=== PATIENT | female | born 1955 | race African-American/Black ===

== ENCOUNTER 2018-01-30 23:11 | Inpatient (IN) | payer OTHER ==
[~2018-01-30] VITALS: Ht 160 cm; Wt 79.4 kg
[2018-01-30] MEDS ORDERED: SODIUM CHLORIDE 0.9% 1,000 ML IV ONE (23:51)
[2018-01-31] VITALS: BP 152/69
[2018-01-31 00:28] LABS: HEMATOCRIT. 33.8 % (36.0-48.0); HEMOGLOBIN. 11.4 g/dL (12.0-16.0); MEAN CORPUSCULAR HEMOGLOBIN 30.8 pg (28.0-32.0); MEAN CORPUSCULAR VOLUME 91.8 fL (81.0-99.0); MEAN PLATELET VOLUME 8.5 fl (7.4-10.4); PLATELET 155 x1000/uL (130-400); RED BLOOD CELL COUNT 3.69 mill/uL (4.2-5.4); RED CELL DISTRIBUTION WIDTH 17.2 % (11.6-14.6)
[2018-01-31 00:34] LABS: CHLORIDE 97 mEq/L (98-107); INR 1.1
[2018-01-31 00:38] LABS: ETHANOL BLOOD < 10 mg/dL
[2018-01-31 00:40] LABS: AMMONIA < 10 uMol/L (<32)
[2018-01-31 01:15] LABS: CLARITY URINE CLEAR (CLEAR); COLOR URINE YELLOW (YELLOW); KETONES URINE TRACE (NEGATIVE); LEUKOCYTE ESTERASE URINE TRACE (NEGATIVE); NITRITE URINE NEGATIVE (NEGATIVE); OCCULT BLOOD URINE 1+ (NEGATIVE); PROTEIN URINE 4+ (NEGATIVE); SPECIFIC GRAVITY URINE 1.016 (1.005-1.030); UROBILINOGEN URINE 0.2 E.U./dL (0.2-1.0)
[2018-01-31 01:29] LABS: *AMPHETAMINES SCREEN URINE NEGATIVE (NEGATIVE); *BARBITURATES SCREEN URINE NEGATIVE (NEGATIVE); *BENZODIAZEPINES SCREEN URINE NEGATIVE (NEGATIVE); *COCAINE SCREEN URINE NEGATIVE (NEGATIVE); METHADONE URINE SCREEN NEGATIVE (NEGATIVE)
[2018-01-31 01:30] LABS: CANNABINOID URINE SCREEN NEGATIVE (NEGATIVE); OPIATES URINE SCREEN PRESUMTIVE POSITIVE (NEGATIVE); PHENCYCLIDINE URINE SCREEN NEGATIVE (NEGATIVE)
[2018-01-31 01:53] LABS: PLATELET ESTIMATE NORMAL
[2018-01-31] MEDS ORDERED: CLONIDINE 0.2MG TABLET PO ONE (07:30)
[2018-01-31] MEDS ORDERED: LABETALOL 5MG/ML SYR 20 MG/4 ML SYRINGE IV ONE (07:30)
[2018-01-31 10:30] VITALS: BP 90/50
[2018-01-31 12:00] VITALS: BP 90/50
[2018-01-31 12:49] VITALS: BP 90/50
[2018-01-31] MEDS ORDERED: CEPH500C2 MT (13:10)
[2018-01-31] MEDS ORDERED: TRAM50TA3 MT (13:10)
[2018-01-31] MEDS ORDERED: PRAV40TA MT (13:10)
[2018-01-31] MEDS ORDERED: SEVE800T8 MT (13:10)
[2018-01-31] MEDS ORDERED: FURO20TA4 MT (13:10)
[2018-01-31] MEDS ORDERED: MELA3TAB MT (13:10)
[2018-01-31] MEDS ORDERED: METO25TA6 MT (13:10)
[2018-01-31] MEDS ORDERED: LOSA25TA12 MT (13:10)
[2018-01-31] MEDS ORDERED: OMEP20CA10 MT (13:11)
[2018-01-31] MEDS ORDERED: DEXTROSE 50% WATER 50ML SYRINGE IV PRN (14:00)
[2018-01-31] MEDS ORDERED: ONDANSETRON HCL 4MG/2ML VIAL IV PRN (14:00)
[2018-01-31] MEDS ORDERED: HYDROCODONE/ACETAMINOPHEN 5/325MG TABLET PO PRN (14:00)
[2018-01-31] MEDS: LOSARTAN POTASSIUM 25 MG TABLET PO SCH (14:00)
[2018-01-31] MEDS ORDERED: ACETAMINOPHEN 325MG TABLET PO PRN (14:00)
[2018-01-31 15:53] VITALS: BP 105/58
[2018-01-31] MEDS: SEVELAMER CARBONATE 800 MG TABLET PO SCH (17:23)
[2018-01-31] MEDS: BLOOD SUGAR DIAGNOSTIC STRIP TEST SCH ×2 (17:23→21:00)
[2018-01-31] MEDS: INSULIN LISPRO 100 UNITS/ML SUBCUT SCH ×2 (17:28→21:00)
[2018-01-31 20:00] VITALS: BP 99/48
[2018-01-31] MEDS ORDERED: ATORVASTATIN CALCIUM 10MG TABLET PO SCH (21:00)
[2018-01-31] MEDS ORDERED: PRAVASTATIN SODIUM MT SCH (21:00)
[2018-01-31] MEDS: METOPROLOL TARTRATE 25MG TABLET PO SCH (21:00)
[2018-02-01 04:00] VITALS: BP 128/60
[2018-02-01 06:12] LABS: HEMATOCRIT. 30.8 % (36.0-48.0); HEMOGLOBIN. 9.9 g/dL (12.0-16.0); MEAN CORPUSCULAR HEMOGLOBIN 29.6 pg (28.0-32.0); MEAN CORPUSCULAR VOLUME 91.8 fL (81.0-99.0); MEAN PLATELET VOLUME 9.2 fl (7.4-10.4); PLATELET 145 x1000/uL (130-400); RED BLOOD CELL COUNT 3.35 mill/uL (4.2-5.4); RED CELL DISTRIBUTION WIDTH 17.4 % (11.6-14.6)
[2018-02-01] MEDS: BLOOD SUGAR DIAGNOSTIC STRIP TEST SCH ×2 (06:22→12:20)
[2018-02-01] MEDS ORDERED: OMEPRAZOLE 20MG CAPSULE EXTENDED RELEASE PO SCH (07:20)
[2018-02-01] MEDS: SEVELAMER CARBONATE 800 MG TABLET PO SCH ×2 (07:50→13:10)
[2018-02-01] MEDS: INSULIN LISPRO 100 UNITS/ML SUBCUT SCH ×2 (07:50→13:09)
[2018-02-01] MEDS: METOPROLOL TARTRATE 25MG TABLET PO SCH (09:00)
[2018-02-01] MEDS: LOSARTAN POTASSIUM 25 MG TABLET PO SCH (09:00)
[2018-02-01] MEDS ORDERED: FUROSEMIDE 20MG TABLET PO SCH (09:00)
[2018-02-01 17:12] VITALS: BP 129/71
[2018-02-01 22:55] LABS: PLATELET ESTIMATE NORMAL
== END 2018-02-01 18:05 | disposition short-term general hospital (02) | DRG 917 ==
LOC: ER 23:11 → EDBEDREQ 01-31 08:16 → ENRESERV 01-31 09:50 → 6WST 01-31 10:31
PROVIDERS: ADMIT Family Medicine Adult Medicine; ATTEND Family Medicine Adult Medicine
DX: T40.2X2A Poisoning by other opioids, intentional self-harm, initial encounter (principal); N18.6 End stage renal disease; G92 Toxic encephalopathy; I12.0 Hypertensive chronic kidney disease with stage 5 chronic kidney disease or end stage renal disease; E11.22 Type 2 diabetes mellitus with diabetic chronic kidney disease; D64.9 Anemia, unspecified; T45.0X2A Poisoning by antiallergic and antiemetic drugs, intentional self-harm, initial encounter; Y92.89 Other specified places as the place of occurrence of the external cause; Z99.2 Dependence on renal dialysis
CPT/HCPCS: 36415; 70450; 71045; 80048; 80053; 80305; 80307; 80329; 81003; 82140; 82962; 83690; 85025; 85610; 93005; 96361; 96374; 99285; G0482; J1815; J3490; J7030